=== PATIENT | male | born 1985 | race Caucasian/White ===

== ENCOUNTER 2021-06-13 15:03 | Emergency (ER) | payer OTHER ==
--- NOTE | 2021-06-13 15:47 | ED Physician Documentation ---
History of Present Illness - Stated complaint Stated Complaint: HEART PALPITATIONS - Chief complaint Chief Complaint: Cardiac - History obtained from History obtained from: Patient - Additonal information Additional information: The patient comes to the emergency department with chief complaint of palpitations. The patient has a history of intermittent episodes of tachycardia, for which he has been seeing Dr. Prosper Kumar of cardiology since October of last year. The patient states that he generally will have episodes lasting anywhere from 2 to 5 minutes, and then they go away but this time, the patient states that he has had episodes on and off for about the last 5 or 6 hours. He states he is not currently on any medication for this. He has had event monitoring through Dr. Landry as well as recent labs. The event monitoring showed brief episodes of SVT, as well as PVCs and PACs. Patient's recent labs showed a normal potassium, calcium, and TSH. The patient states that he does have a history of sleep apnea, and it is thought that this may be partially responsible for the patient's ongoing symptoms. The patient is scheduled for an electrophysiology consult, as well as an echocardiogram. He states that he has been drinking plenty of fluids and that per Dr. Landry is recommendation, he has been drinking a lot of electrolyte drinks, as well. He states he has about 3 cups of coffee per week and that this is not changed recently. The patient does note that he has been under stress. He does exercise but has been instructed to keep it light. The patient denies any other discomfort besides the sense of palpitations. No chest pain or shortness of breath. No lightheadedness or syncope. Review of Systems Ten Systems: 10 systems reviewed and negative Constitutional: reports: Reviewed and negative Eyes: reports: Reviewed and negative Ears: reports: Reviewed and negative Nose: reports: Reviewed and negative Throat: reports: Reviewed and negative Cardiac: reports: Palpitations Respiratory: reports: Reviewed and negative GI: reports: Reviewed and negative : reports: Reviewed and negative Skin: reports: Reviewed and negative Musculoskeletal: reports: Reviewed and negative Neurologic: reports: Reviewed and negative Psychiatric: reports: Reviewed and negative Endocrine: reports: Reviewed and negative Immunocompromised: reports: Reviewed and negative PD PAST MEDICAL HISTORY - Present Medications Home Medications: Ambulatory Orders Medication Instructions Recorded Confirmed Metoprolol Tartrate [Lopressor] 25 mg PO BID PRN #30 tablet 06/13/21 - Allergies Allergies/Adverse Reactions: Allergies Allergy/AdvReac Type Severity Reaction Status Date / Time acetaminophen [From Vicodin] Allergy Unknown Verified 06/13/21 15:10 hydrocodone [From Vicodin] Allergy Unknown Verified 06/13/21 15:10 PD ED PE NORMAL - Vitals Vital signs reviewed: Yes - General General: Alert and oriented X 3, No acute distress, Well developed/nourished - HEENT HEENT: Atraumatic, PERRL, EOMI, Moist mucous membranes - Neck Neck: Supple, no meningeal sign - Cardiac Cardiac: RRR, No murmur - Respiratory Respiratory: No respiratory distress, Clear bilaterally - Abdomen Abdomen: Soft, Non tender, Non distended - Derm Derm: Normal color, Warm and dry, No rash - Extremities Extremities: No deformity, No edema - Neuro Neuro: Alert and oriented X 3, core inserter 2-12 intact, Normal speech - Psych Psych: Normal mood, Normal affect Results - Vitals Vitals: Vital Signs - 24 hr 06/13/21 06/13/21 06/13/21 15:06 15:59 16:47 Temperature 36.5 C Heart Rate 102 H 88 93 Respiratory 20 20 19 Rate Blood Pressure 163/94 H 145/104 H 138/94 H O2 Saturation 98 98 96 06/13/21 06/13/21 17:12 17:49 Temperature Heart Rate 85 90 Respiratory 20 20 Rate Blood Pressure 130/92 H 137/91 H O2 Saturation 97 100 Oxygen O2 Source Room air - EKG (time done) 1518 Rate: Rate (enter#) (99) Rhythm: NSR [place]: Normal Intervals: Normal OR QRS: LVH Ischemia: Normal ST segments Compare to prior EKG: Old EKG unavailable Computer interpretation: Agree with computer - Labs Labs: Laboratory Tests 06/13/21 06/13/21 15:51 15:51 WBC 8.3 RBC 4.79 Hgb 16.5 Hct 44.2 MCV 92.3 MCH 34.4 H MCHC 37.3 H RDW 11.6 L Plt Count 227 MPV 9.4 Neut # (Auto) 5.4 Lymph # (Auto) 2.0 [place] # (Auto) 0.7 Eos # (Auto) 0.1 Baso # (Auto) 0.0 Absolute Nucleated RBC 0.00 Nucleated RBC % 0.0 Sodium 136 Potassium 3.8 Chloride 101 Carbon Dioxide 26 Anion Gap 9.0 BUN 13 Creatinine 1.1 Estimated GFR (MDRD) 75 L Glucose 101 H Calcium 9.4 Total Bilirubin 0.4 AST 59 H ALT 108 H Alkaline Phosphatase 85 Total Protein 7.1 Albumin 4.4 Globulin 2.7 Albumin/Globulin Ratio 1.6 Lipase 38 PD MEDICAL DECISION MAKING - ED course Complexity details: reviewed results, re-evaluated patient, considered differential, d/w patient ED course: The patient was well-appearing in the emergency department. He was placed on the production support developer which showed a baseline rate in the 90s and sinus, with occasional rises into the low 100s. The patient had brought records of his heart rates prior to coming to the emergency department and at that point in time, had found to have heart rates as high as the 120s. The patient was otherwise asymptomatic. He was worked up with labs and EKG, Which were unremarkable. Patient was given a dose of metoprolol here and a prescription for as needed metoprolol at home. He is advised to follow-up with Dr. Fitzgerald. We have discussed the usual indications for return. Departure - Departure Disposition: 01 Home, Self Care Clinical Impression: Tachycardia Condition: Stable Instructions: ED Palpitations Prescriptions: Metoprolol Tartrate [Lopressor] 25 mg PO BID PRN #30 tablet PRN Reason: palpitations Discharge Date/Time: 06/13/21 17:49
[2021-06-13 15:58] LABS: BASOPHILS % (AUTO) 0.4 %; EOSINOPHILS # (AUTO) 0.1 10^3/uL (0.0-0.7); EOSINOPHILS % (AUTO) 1.6 %; HCT - HEMATOCRIT 44.2 % (42.0-52.0); HGB - HEMOGLOBIN 16.5 g/dL (14.0-18.0); LYMPHOCYTES % (AUTO) 24.3 %; MEAN CORPUSCULAR HEMOGLOBIN 34.4 pg (27.0-31.0); MEAN CORPUSCULAR HGB CONC 37.3 g/dL (32.0-36.0); MEAN CORPUSCULAR VOLUME 92.3 fL (80.0-94.0); MEAN PLATELET VOLUME 9.4 fL (7.4-11.4); MONOCYTES # (AUTO) 0.7 10^3/uL (0.0-1.0); MONOCYTES % (AUTO) 8.8 %; NEUTROPHILS # (AUTO) 5.4 10^3/uL (1.5-6.6); NEUTROPHILS % (AUTO) 64.5 %; PLT - PLATELET COUNT 227 10^3/uL (130-450); RED BLOOD COUNT 4.79 10^6/uL (4.70-6.10); RED CELL DISTRIBUTION WIDTH 11.6 % (12.0-15.0); WHITE BLOOD COUNT 8.3 x10^3/uL (4.8-10.8)
[2021-06-13 16:11] LABS: ALBUMIN 4.4 g/dL (3.2-5.5); ALBUMIN/GLOBULIN RATIO 1.6 (1.0-2.2); BILIRUBIN,TOTAL 0.4 mg/dL (0.2-1.0); CALCIUM 9.4 mg/dL (8.5-10.3); CREATININE 1.1 mg/dL (0.6-1.2); POTASSIUM 3.8 mmol/L (3.5-5.0); TOTAL PROTEIN 7.1 g/dL (6.7-8.2)
[2021-06-13] MEDS ORDERED: METOPROLOL TARTRATE 50 MG TABLET PO STA (17:11)
[2021-06-13 17:51] VITALS: BP 137/91
== END 2021-06-13 17:49 | disposition home or self-care (01) ==
LOC: ED 15:03
DX: R00.0 Tachycardia, unspecified (principal)
CPT/HCPCS: 36415; 80053; 83690; 85025; 93005; 99283; 99284; A9270